=== PATIENT | female | born 1960 | race Caucasian/White ===

== ENCOUNTER 2021-01-23 13:02 | Outpatient (CLI) | payer BC, SELFPAY ==
--- NOTE | ~2021-01-23 | XR_ITS ---
XR chest 2V DATE: 01/23/2021 13:23 INDICATION: Reaction to tuberculin skin test TECHNIQUE: PA and lateral views COMPARISON: None FINDINGS: Normal heart size. Mild aortic tortuosity. No hilar or mediastinal enlargement. Slight no p ulmonary infiltrate or consolidation, pleural effusion or pulmonary vascular congestion or pneumothor ax. Degenerative spurring and mild scoliosis of the thoracic spine. IMPRESSION: No active cardiopulmonary disease Reviewed, dictated and finalized at location A.
== END 2021-01-23 13:03 | disposition home or self-care (01) ==
PROVIDERS: PCP Physician Assistant; Visit Provider Physician Assistant
DX: R76.11 Nonspecific reaction to tuberculin skin test without active tuberculosis (principal)
CPT/HCPCS: 71046

== ENCOUNTER 2021-06-20 10:22 | Emergency (ER) | payer OTHER, SELFPAY ==
[2021-06-20 10:34] VITALS: BP 127/91; PULSE 66; RESP 18; TEMP 37.1; O2SAT 100
--- NOTE | 2021-06-20 11:09 | ED.GENADULT ---
HPI - General Adult General Chief complaint: Skin/Abscess/Foreign Body <Josseline Alarcon PA-C - Last Filed: 06/20/21 12:45> Stated complaint: fb ear <ALE Lovell Last Filed: 06/20/21 12:45> Time Seen by Provider: 06/20/21 10:44 <ALE Lovell Last Filed: 06/20/21 12:45> Source: patient <ALE Lovell Last Filed: 06/20/21 12:45> Mode of arrival: ambulatory <ALE Lovell Last Filed: 06/20/21 12:45> Limitations: no limitations <ALE Lovell Last Filed: 06/20/21 12:45> History of Present Illness HPI narrative: Patient presents with foreign body to the left ear. Patient states that she used with MAC silicone earplug throughout the night with into her ear. She reports that she and noticed that there was a portion retained in her ear. She reports that they are putty-like in consistency. She reports she was trying to remove the silicone herself by sticking things into her ear. She reports slightly muffled hearing but not by much. Denies any other symptoms. <Josseline Alarcon PA-C - Last Filed: 06/20/21 12:45> Related Data Home medications: Home Medications Medication Instructions Recorded Confirmed bupropion HCl PO 06/20/21 fluoxetine 40 mg 06/20/21 levothyroxine 06/20/21 triamterene-hydrochlorothiazid cap 06/20/21 <Josseline Alarcon PA-C - Last Filed: 06/20/21 12:45> Allergies/adverse reactions: Allergies Allergy/AdvReac Type Severity Reaction Status Date / Time No Known Allergies Allergy Verified 06/20/21 10:42 <ALE Lovell Last Filed: 06/20/21 12:45> Review of Systems Review of Systems: CONSTITUTIONAL: Denies fever, chills, or sweats. EYES: Denies visual changes, redness, or discharge. ENT: Reports foreign body left ear denies rhinorrhea, congestion, sore throat, or otalgia. CARDIOVASCULAR: Denies chest pain, palpitations, or edema. RESPIRATORY: Denies cough or dyspnea. GASTROINTESTINAL: Denies abdominal pain, nausea, vomiting, or diarrhea. GENITOURINARY: Denies dysuria or hematuria. SKIN: Denies rash or itching. MUSCULOSKELETAL: Denies back pain, joint pain, or myalgia. NEUROLOGIC: Denies headache, numbness, dizziness, or weakness. PSYCHIATRIC: Denies anxiety or depression. <Josseline Alarcon PA-C - Last Filed: 06/20/21 12:45> Exam Narrative: GENERAL: Well-appearing, well-nourished, and in no acute distress. HEAD: Normocephalic, atraumatic. EYES: PERRLA and EOMI. ENT: Nares clear, no rhinorrhea or epistaxis. Mucous membranes moist. Oropharynx without tonsillar hypertrophy exudate or other lesions. right TM pearly cordova nonbulging. Left TM with injection. It partially obstructed by clear foreign body. CHEST: Clear to auscultation. No respiratory distress. No wheezes rales or rhonchi HEART: Regular rate and rhythm. No murmur heard. Normal peripheral pulses. EXTREMITIES: Normal range of motion. . SKIN: Warm, dry, no rash. NEURO: No focal deficits. Alert and oriented x3. PSYCH: Normal mood and affect. <Josseline Alarcon PA-C - Last Filed: 06/20/21 12:45> Course Vital Signs Vital signs: Vital Signs Temperature 98.7 F 06/20/21 10:34 Pulse Rate 66 06/20/21 10:34 Respiratory Rate 18 06/20/21 10:34 Blood Pressure 127/91 H 06/20/21 10:34 Pulse Oximetry 100 06/20/21 10:34 Temperature 98.7 F 06/20/21 10:34 Pulse Rate 66 06/20/21 10:34 Respiratory Rate 18 06/20/21 10:34 Blood Pressure 127/91 H 06/20/21 10:34 Pulse Oximetry 100 06/20/21 10:34 <ALE Lovell Last Filed: 06/20/21 12:45> Medical Decision Making MDM Narrative Medical decision making narrative: I was able to use an ear curette to remove some of the silicone, but there is some packed against the TM that I can not remove. There is already injection around the tympanic membrane and irritation in the canal from the patient trying to remove the substance herself. Consult Dr CARMEN who
== END 2021-06-20 12:48 | disposition home or self-care (01) ==
PROVIDERS: Emergency Provider General Practice; PCP Physician Assistant
DX: T16.2XXA Foreign body in left ear, initial encounter (principal)
CPT/HCPCS: 69200; 99282

== ENCOUNTER 2021-12-04 15:16 | Outpatient (CLI) | payer BC, SELFPAY ==
--- NOTE | ~2021-12-04 | MM_ITS ---
EXAMINATION: MM screening vj BI w vinay HISTORY: Screening mammogram TECHNIQUE: Craniocaudal and mediolateral oblique 3-D tomosynthesis images were obtained and synthetic 2-D images were generated. CAD analysis was submitted and interpreted. COMPARISON: No prior mammogram is available for comparison at this institution. BREAST PARENCHYMAL COMPOSITION: There are scattered areas of fibroglandular density. FINDINGS: RIGHT BREAST: There is no suspicious mass, calcification, or architectural distortion to suggest nona gnancy. LEFT BREAST: There is focal asymmetry in the upper outer quadrant of the left breast. IMPRESSION: 1. Focal asymmetry of the left breast 2. Additional mammographic views and possible breast ultrasound are recommended. BI-RADS Category 0: Incomplete: Needs additional imaging evaluation. Reviewed, dictated and finalized at location A. IMPRESSION: 1. Focal asymmetry of the left breast 2. Additional mammographic views and possible breast ultrasound are recommended . BI-RADS Category 0: Incomplete: Needs additional imaging evaluation.
== END 2021-12-04 15:17 | disposition home or self-care (01) ==
LOC: ANHIMG 15:18
PROVIDERS: PCP Physician Assistant; Visit Provider Physician Assistant
DX: Z12.31 Encounter for screening mammogram for malignant neoplasm of breast (principal); R92.8 Other abnormal and inconclusive findings on diagnostic imaging of breast
CPT/HCPCS: 77063; 77067

== ENCOUNTER 2021-12-13 08:22 | Outpatient (CLI) | payer BC, SELFPAY ==
--- NOTE | ~2021-12-13 | US_ITS ---
EXAMINATION: US right upper quadrant EXAM DATE: 12/13/2021 11:41 INDICATION: RUQ PAIN TECHNIQUE: Multiple grayscale and Doppler images of the abdomen right upper quadrant were obtained (kesha y a technologist who performed the scan) and subsequently reviewed. There is no prior study for alejandra self. FINDINGS: The pancreatic head and body are normal in appearance. The pancreatic tail is not visualized. The l iver has normal echogenicity and contour. There are no focal liver lesions identified. There is no evidence of intrahepatic biliary duct dilation. Portal venous flow was seen in the hepatopedal, nor mal direction and has normal Doppler waveform. No right-sided hydronephrosis. Common bile duct measures 4 mm, which is normal. The gallbladder wall is normal in thickness, with ex pected amount of distention. No sonographic evidence of pericholecystic fluid. There is no cholelit hiases. Technologist performing exam reports patient did not demonstrate sonographic Schultz's sign. Please note that this sign is less reliable in patients who have received pain medication. IMPRESSION: 1. Unremarkable abdominal ultrasound exam. Reviewed, dictated and finalized at location A.
== END 2021-12-13 08:23 | disposition home or self-care (01) ==
LOC: ANHIMG 08:25
PROVIDERS: PCP Physician Assistant; Visit Provider Physician Assistant
DX: R10.11 Right upper quadrant pain (principal)
CPT/HCPCS: 76705

== ENCOUNTER 2021-12-15 10:59 | Outpatient (CLI) | payer BC, SELFPAY ==
--- NOTE | ~2021-12-15 | MM_ITS ---
EXAMINATION: MM diagnostic vj LT w vinay HISTORY: Follow-up left breast asymmetry TECHNIQUE: Additional 3-D tomosynthesis images of the left breast were performed and synthetic 2-D im ages were generated. CAD analysis was submitted and interpreted. COMPARISON: 12/04/2021 BREAST PARENCHYMAL COMPOSITION: Breast composed of scattered areas of fibroglandular density FINDINGS: The area of asymmetry in the upper outer quadrant of the left breast is less dense with spo t compression and mediolateral views, compatible with superimposed fibroglandular tissue. No discrete mass identified. IMPRESSION: 1. No evidence for malignancy in the left breast. 2. Routine yearly screening mammogram and regular clinical breast examination are recommended. BI-RADS Category 1: Negative Reviewed, dictated and finalized at location A. IMPRESSION: 1. No evidence for malignancy in the left breast. 2. Routine yearly screening mammogram and regular clinical breast examination a re recommended. BI-RADS Category 1: Negative
== END 2021-12-15 11:00 | disposition home or self-care (01) ==
PROVIDERS: PCP Physician Assistant; Visit Provider Physician Assistant
DX: R92.8 Other abnormal and inconclusive findings on diagnostic imaging of breast (principal)
CPT/HCPCS: 77061; 77065; G0279

== ENCOUNTER 2022-01-01 15:38 | Outpatient (CLI) | payer BC, SELFPAY ==
--- NOTE | ~2022-01-01 | XR_ITS ---
XR chest 2V DATE: 01/01/2022 15:56 INDICATION: TB screening TECHNIQUE: PA and lateral views COMPARISON: 01/23/2021 2 view chest FINDINGS: There is normal heart size. Aortic calcification and mild tortuosity. No hilar or mediastin al enlargement. No pulmonary infiltrate or consolidation, pleural effusion or pulmonary vascular congestion or pneumo thorax. Diffuse osteopenia. Degenerative spurring and mild dextro scoliosis of the thoracic spine. IMPRESSION: No active cardiopulmonary disease or significant change since 01/23/2021 Reviewed, dictated and finalized at location A. IMPRESSION: No active cardiopulmonary disease or significant change since 2020
== END 2022-01-01 15:39 | disposition home or self-care (01) ==
LOC: CHSIMG 15:41
PROVIDERS: PCP Physician Assistant; Visit Provider Physician Assistant
DX: Z11.1 Encounter for screening for respiratory tuberculosis (principal)
CPT/HCPCS: 71046

== ENCOUNTER 2023-01-23 08:48 | Outpatient (CLI) | payer MEDICARE, SELFPAY ==
--- NOTE | ~2023-01-23 | MM_ITS ---
EXAMINATION: MM [facility] HISTORY: Screening mammogram TECHNIQUE: Craniocaudal and mediolateral oblique 3-D tomosynthesis images were obtained and synthetic 2-D images were generated. CAD analysis was submitted and interpreted. COMPARISON: 12/15/2021, 12/04/2021 BREAST PARENCHYMAL COMPOSITION: There are scattered areas of fibroglandular density. FINDINGS: No suspicious mass, calcification, or architectural distortion are identified in either akash ast to suggest malignancy. There has been no suspicious interval change. IMPRESSION: 1. No mammographic evidence of malignancy. 2. Recommend routine screening mammography in one year. BI-RADS Category 1: Negative Reviewed, dictated and finalized at location A.
== END 2023-01-23 08:49 | disposition home or self-care (01) ==
LOC: ANHIMG 08:52
PROVIDERS: PCP Physician Assistant; Visit Provider Family Medicine
DX: Z12.31 Encounter for screening mammogram for malignant neoplasm of breast (principal)
CPT/HCPCS: 77063; 77067

== ENCOUNTER 2024-11-11 00:18 | Day surgery (SDC) | payer MEDICARE, SELFPAY ==
[2024-08-13 14:34] VITALS: BMI 31.5
[2024-11-02 13:07] VITALS: BMI 30.8
[2024-11-11 07:14] VITALS: BP 177/75; PULSE 53; RESP 18; TEMP 36.3; O2SAT 99
[2024-11-11] MEDS: LACTATED RINGERS 1,000 ML 150 ML IV CONT (07:24)
--- NOTE | 2024-11-11 07:54 | WPDANESEPPF ---
Anes - Initial Pre Proc Eval Procedure: Operation Date: 11/11/24 08:30 Proposed Procedures p Esophagogastroduodenoscopy & Colonoscopy - Wilber Sauer MD Date/Time: 11/11/24 07:54 Surgeon: Wilber Sauer MD Pre Op Diagnosis: anemia Patient Data Age: 64 Gender: F Height: 1.65 m Weight: 89.4 kg Last Vital Signs Temp 36.3 C L 11/11/24 07:14 Pulse 53 L 11/11/24 07:14 Resp 18 11/11/24 07:14 BP 177/75 H 11/11/24 07:14 Pulse Ox 99 11/11/24 07:14 O2 Del Method Room Air 11/11/24 07:14 Allergies Allergy/AdvReac Type Severity Reaction Status Date / Time No Known Allergies Allergy Verified 11/11/24 07:13 Home Medications ?Medication ?Instructions ?Recorded ?Confirmed ?Type bupropion HCl 150 mg tablet,12 hr 150 mg PO DAILY 06/20/21 11/11/24 History sustained-release fluoxetine 20 mg capsule 40 mg PO DAILY 06/20/21 11/11/24 History triamterene 37.5 1 cap PO DAILY 06/20/21 11/11/24 History mg-hydrochlorothiazide 25 mg capsule levothyroxine 175 mcg tablet 175 mcg PO DAILY 08/13/24 11/11/24 History psyllium husk 0.4 gram capsule 0.4 g PO DAILY 11/02/24 11/11/24 History (Daily Fiber) Patient hx anesthesia problems: none Family hx anesthesia problems: none Results Review: All pre-operative results and documents have been reviewed as part of the pre-operative evaluation. [facility] Past Medical History Medical History (Updated 11/11/24 @ 07:55 by Clovis Sawyer MD) Obesity HTN (hypertension) Social History Social History Smoking packs per day: 0.5 Smoking cigarettes per day: 10.0 Years smoked: 20 Smoking pack-years: 10.00 Smoking status: Former smoker Tobacco type: cigarettes Additional smoking assessment comments: 2009 Alcohol intake: current Substance use: current Substance use type: marijuana Other substance usage details: smoking, gummies Living arrangements: with family Additional living arrangements comments: lives with brother Spiritual care concerns: No Anes - Eval Final PreProcedure Day of Procedure 11/11/24 07:54 Patient weight: obese Heart: regular rate and rhythm Lungs: clear to auscultation Airway: Mallampati scale class II Neurological: alert and oriented Last oral intake: >/= 8 hours ASA classification: II Emergent: no Anesthetic plan: proceed Anesthesia type and monitoring: general GIVS and standard monitoring Results Review: All pre-operative results and documents have been reviewed as part of the pre-operative evaluation. Informed Consent: The patient's anesthetic plan and its attendant risks and benefits were discussed with the patient/family/POA. Questions were solicited and answers provided to the satisfaction of the patient/family/POA.
--- NOTE | 2024-11-11 08:26 | PM.IMHP ---
H&P: HPI History of Present Illness Date/Time: 11/11/24 08:26 Chief Complaint: Anemia Narrative: the patient is referred by her primary care physician for the finding of anemia. There are no records to verify if this anemia is iron deficient or not, however the patient is asymptomatic from a GI standpoint. Denies hematemesis, melena, hematochezia, heartburn, dysphagia, rectal bleeding, change in bowel habits or abdominal pain. There is no family history of colorectal cancer. She has had Cologuard testing negative in the past but never had a colonoscopy. Review of Systems Review of Systems: All systems reviewed & are unremarkable except as noted in HPI and below PMFSH Past Medical History Medical History (Updated 11/11/24 @ 08:28 by Wilber Sauer MD) Obesity HTN (hypertension) Social History Social History Smoking packs per day: 0.5 Smoking cigarettes per day: 10.0 Years smoked: 20 Smoking pack-years: 10.00 Smoking status: Former smoker Tobacco type: cigarettes Additional smoking assessment comments: 2009 Alcohol intake: current Substance use: current Substance use type: marijuana Other substance usage details: smoking, gummies Living arrangements: with family Additional living arrangements comments: lives with brother Spiritual care concerns: No Meds Home Medications and Allergies Home Medications ?Medication ?Instructions ?Recorded ?Confirmed ?Type bupropion HCl 150 mg tablet,12 hr 150 mg PO DAILY 06/20/21 11/11/24 History sustained-release fluoxetine 20 mg capsule 40 mg PO DAILY 06/20/21 11/11/24 History triamterene 37.5 1 cap PO DAILY 06/20/21 11/11/24 History mg-hydrochlorothiazide 25 mg capsule levothyroxine 175 mcg tablet 175 mcg PO DAILY 08/13/24 11/11/24 History psyllium husk 0.4 gram capsule 0.4 g PO DAILY 11/02/24 11/11/24 History (Daily Fiber) Allergies Allergy/AdvReac Type Severity Reaction Status Date / Time No Known Allergies Allergy Verified 11/11/24 07:13 Vital Signs Vital Signs - 24 hr 11/11/24 07:14 Temperature 97.3 F L Pulse Rate 53 L Respiratory Rate 18 Blood Pressure 177/75 H Pulse Oximetry 99 Oxygen Delivery Room Air Exam Const: General: cooperative and healthy appearing Resp: Effort & Inspection: normal respiratory effort and able to speak in complete sentences Auscultation: clear to auscultation bilaterally Cardio: Rate: regular rate Rhythm: regular rhythm GI: Inspection: normal to inspection GI Palp: No No hepatosplenomegaly present Auscultation: normal bowel sounds Rectal Exam: deferred Skin: General skin exam: normal color Psych: Appearance: grossly normal Mental Status: mental status grossly normal Assessment and Plan Assessment and plan (1) Anemia: Code(s): D64.9 - Anemia, unspecified Status: Acute Assessment and Plan: The patient is deemed a good candidate for the procedures. Consent signed. Will proceed.
[2024-11-11] MEDS: BENZOCAINE (*SP) 60 ML SPRAY CAN (HURRICAINE) 1 SPRAY MUCOUS MEM (08:32)
--- NOTE | 2024-11-11 08:39 | SUR.OPER ---
EGD: [id number] COLON: [id number]
--- NOTE | 2024-11-11 09:12 | SUR.OPER ---
unable to retrieve sigmoid colon polyp md osito bruce
[2024-11-11 09:14] VITALS: BP 131/82; PULSE 57; RESP 21; O2SAT 97
[2024-11-11 09:24] VITALS: BP 147/84; PULSE 58; RESP 24; O2SAT 100
[2024-11-11 09:34] VITALS: BP 157/91; PULSE 55; RESP 21; O2SAT 100
== END 2024-11-11 09:52 | disposition home or self-care (01) ==
PROVIDERS: PCP Internal Medicine; Visit Provider Internal Medicine Gastroenterology
PROC: 0DJ08ZZ Inspection of Upper Intestinal Tract, Via Natural or Artificial Opening Endoscopic (ICD-10-PCS; CPT 45378; principal; 2024-11-11 08:30)
DX: D64.9 Anemia, unspecified (principal); K21.9 Gastro-esophageal reflux disease without esophagitis; I10 Essential (primary) hypertension; F12.90 Cannabis use, unspecified, uncomplicated; E66.9 Obesity, unspecified; Z68.32 Body mass index [BMI] 32.0-32.9, adult; Z98.890 Other specified postprocedural states; Z98.84 Bariatric surgery status; Z87.891 Personal history of nicotine dependence
CPT/HCPCS: 43239; 45385; 88305; J1596; J2003; J2704; J7120